=== PATIENT | male | born 1985 | race Caucasian/White ===

== ENCOUNTER 2016-08-05 15:40 | Emergency (ER) ==
[2016-08-05 16:57] LABS: URINE SOURCE VOIDED
[2016-08-05 17:00] LABS: BILIRUBIN URINE NEGATIVE (NEGATIVE); BLOOD URINE 2+ (NEGATIVE); CLARITY SL. CLOUDY (CLEAR); COLOR YELLOW; LEUKOCYTES URINE 2+ (NEGATIVE); NITRITE URINE NEGATIVE (NEGATIVE); PROTEIN URINE NEGATIVE (NEGATIVE); UROBILINOGEN URINE NORMAL
--- NOTE | 2016-08-05 17:15 | PROVIDER DOCUMENTATION ---
HPI-Male Problem - General Chief Complaint: UTI Symptoms Stated Complaint: UTI SX Time Seen by Provider: 08/05/16 16:57 Source: patient, family () Allergies/Adverse Reactions: Patient Allergies Allergy/AdvReac Type Severity Reaction Status Date / Time No Known Allergies Allergy Verified 08/05/16 16:40 Home Medications: Home Medication List Medication Instructions Recorded Confirmed Last Taken Type Metformin HCl [Fortamet] 1,000 mg PO BID 08/29/15 08/05/16 05/03/16 History Insulin Novolog 70/30 [Novolog Mix 24 unit SUBQ QAM 11/10/15 08/05/16 05/03/16 History 70/30] Glipizide 5 mg PO QAM 12/10/15 08/05/16 05/03/16 History Insulin Novolog 70/30 [Novolog Mix 12 unit SUBQ QPM 12/10/15 08/05/16 05/03/16 History 70/30] Clonidine [Catapres] 0.2 mg PO BID #10 tablet 04/24/16 08/05/16 05/03/16 Rx Doxycycline 100 mg PO BID #20 capsule 08/05/16 Unknown Rx - History of Present Illness-Male Nature of Presenting Problem: Pt is 31 y/o M presents to the ED with UTI like symptoms. Pt states burning with urination. Pt states he has not ever pulled back his foreskin and cleaned his penis under his foreskin. Pt denies F. Location of Complaint: reports: groin, urethral Radiation: reports: none Quality of Pain: reports: aching Severity in ED: reports: moderate Onset/Duration: reports: last night Timing: reports: still present, intermittent Context/Activities at Onset: reports: light activity Urinary Symptoms: reports: dysuria Sexual intercourse history: reports: Single Partner Contraception: reports: none Associated Symptoms: reports: unable to retract foreskin, penile discharge, penile pain/swelling Associated Symptoms: reports: denies symptoms Similar Symptoms Previously?: Yes Recently seen or treated by another doctor?: No Review of Systems - Adult - REVIEW OF SYSTEMS - ADULT Constitutional: denies: chills, fever Eyes: denies: blurred vision, double vision Ears, Nose, Mouth & Throat: denies: ear pain, nose pain, throat pain Cardiovascular: reports: irregular heart rate (tachy). denies: chest pain, heart murmur Respiratory: denies: cough, shortness of breath, wheezing Gastrointestinal: denies: abdominal pain, diarrhea, nausea, vomiting Genitourinary: reports: dysuria. denies: hematuria Musculoskeletal: denies: bone pain, joint pain, neck pain Integumentary: denies: hives, itching Neurological: denies: dizziness/vertigo, headache/migraines Psychiatric: reports: no symptoms reported Endocrine: reports: no symptoms reported Hematologic/Lymphatic: reports: no symptoms reported Allergic/Immunologic: reports: no symptoms reported All Other Systems: Reviewed and Negative Past History - Adult - PAST MEDICAL HISTORY-ADULT Review of Records: reports: Nursing Assessment Review, Medications Reviewed, Social history reviewed & non-contributory. Major Childhood Illnesses: reports: denies history Cardiovascular: reports: HTN Respiratory: reports: sleep apnea (including in the ER) Gastrointestinal: reports: GERD Obstetrical/Gynecological: reports: denies history Genitourinary: reports: denies history Musculoskeletal: reports: denies history Neurological: reports: denies history Psychiatric: reports: ptsd Endocrine/Immune: reports: Diabetes Other Conditions: reports: denies history - PRIOR SURGERIES/PROCEDURES Surgical/Procedure History: reports: none - IMMUNIZATION STATUS Childhood Immunizations: See Nurse Assessment Flu Vaccine: See Nurse Assessment - FAMILY HISTORY Family History: diabetes, CAD over 55 yo, HTN - SOCIAL HISTORY Smoking: cigarettes, less than 1 pack/day Provider spent 3-5 mins advising pt. on dangers of tobacco.: Discussed manners to quit use, and f/u contacts for add'l counseling. Substance Use: alcohol Alcohol Use Frequency: occasionally Number of drinks per typical drinking period:: 2 drinks Living Situation: family Physical Exam-General - PHYSICAL EXAM-ADULT Initial Vital Signs Reviewed: Yes - CONSTITUTIONAL General Appearance: appears well, alert, no apparent distress - EYES Eyes: PERRL/EOMI, pink conjunctivae, fundi clear, no AV nicking - HEAD, EARS, NOSE, MOUTH & THROAT HENMT: normocephalic/atraumatic, moist mucous membranes, normal ENT inspection, TMs normal, pharynx normal - NECK Neck: non-tender, full range of motion, supple, normal inspection - RESPIRATORY Respiratory: chest non-tender, lungs clear, normal breath sounds, no pleuratic chest pain, no respiratory distress, no accessory muscle use - CARDIOVASCULAR Cardiovascular: normal peripheral pulses, no edema, no gallop, no JVD, no murmur , tachycardia - GASTROINTESTINAL (ABDOMEN) Abdominal Exam: normal bowel sounds, non tender, soft, no organomegaly, no pulsatile mass - GENITOURINARY Male Genitalia: uncircumcised, other (foreskin swelling) Rectal Exam: deferred - LYMPHATIC Lymphatic: no adenopathy - MUSCULOSKELETAL Back Exam: normal inspection, no CVA tenderness, no vertebral tenderness Extremity: normal range of motion, non-tender, normal gait, normal inspection, no pedal edema, no calf tenderness, normal capillary refill, pelvis stable - SKIN Integumentary: normal color, normal turgor, warm/dry - NEUROLOGIC Neurologic: apparatus cleaner II-XII nml as tested, grossly normal, no motor/sensory deficits - PSYCHIATRIC Psych/Mental Status: normal mood/affect, normal thought content, normal thought process, oriented x 3 Progress - PLAN OF CARE/RESULTS Progress/Plan/Lab Results: Laboratory Tests 08/05/16 16:43 Urine Source VOIDED Urine Color YELLOW Urine Clarity SL. CLOUDY A Urine pH 5.0 Ur Specific [place] 1.010 Urine Protein NEGATIVE Urine Ketones NEGATIVE Urine Blood 2+ A Urine Nitrite NEGATIVE Urine Bilirubin NEGATIVE Urine Urobilinogen NORMAL Urine WBC 2+ A Urine Glucose 3+(500 mg/dL) A Orders Category Date Time Status UA [URINALYSIS PL W/POSS RFLX CULT] [URINALYSIS] Stat Lab 08/05/16 16:43 Results Vital Signs - 24 hr 08/05/16 08/05/16 16:39 16:41 Temperature 97.2 F L 97.2 F L Pulse Rate 110 H 110 H Respiratory 22 20 Rate Blood Pressure 157/103 O2 Sat by Pulse 96 97 Oximetry - CONSULTS/PCP/HOSPITALIST Notification #1 *Consult/PCP/Hospitalist*: Dr. Mcdermott Time Discussed: 17:46 (Dr. Mcdermott states have Pt call office to make appointment in the morning) Reason/Comments: Dr. Rodgers consults with Dr. Mcdermott about Pt. Consult Disposition: F/U in office - CHANGE OF SHIFT REPORT (ED Provider) Report Given and Care Transferred to:: Dr. Herrera Time of Transfer: 17:53 Items Pending: Other (Bladder scan) Departure - Departure Time of Disposition Order: 17:47 DIAGNOSIS: Urethritis, Balanitis Disposition: HOME 01 Certified Medical Emergency: Emergent Condition: Stable Additional Instructions: Follow up with Dr. Mcdermott ED Follow Up Instructions: You have been treated by a care provider in the Emergency Department. These instructions are being provided to you so you can have an understanding of how to care for yourself upon discharge. Upon discharge from the Emergency Department, you are responsible for making arrangements for follow-up care by a physician of your choice. Take all prescribed medications as directed. Return to the Emergency Department immediately for any new or worsening symptoms. You may call the Physician Referral phone number at [phone] to obtain a list of Physicians who are taking new patients. Prescriptions: Doxycycline 100 mg PO BID #20 capsule Referrals: Dmitriy Mcdermott DO [STAFF PHYSICIAN] - Call for Appoint. 1-2days Misha Queen MD [Primary Care Provider] - Call for Appoint. -1 week Attestation - Scribe Verification/Attestation Scribe:: Lori Dozier Acting as Scribe for:: Zander Rodgers Scribe documention review:: This chart was documented by a scribe and accurately reflects the service the provider performed and the decisions made by the provider. - Scribe Verification/Attestation #2 Shift Change Time: 17:53 Scribe Name: Brii Hutchison Acting as Scribe for:: Feng Herrera
[2016-08-05 17:17] LABS: URINE EPITHELIAL CELLS <10 /HPF (<10); URINE WBC 20-40 /HPF (<10)
[2016-08-05 17:18] LABS: URINE CAST NONE SEEN /LPF; URINE CRYSTAL NONE SEEN /HPF; URINE CULTURE PL NEEDED? YES
[2016-08-05] MEDS ORDERED: XYLOCAINE-MPF 1% INJ ONE (17:49)
[2016-08-05] MEDS ORDERED: ROCEPHIN IM ONE (17:49)
[2016-08-05 19:29] VITALS: BP 137/91
== END 2016-08-05 19:29 | disposition home or self-care (01) ==
LOC: P.ED 15:40
DX: N34.2 Other urethritis (principal); N48.1 Balanitis; R30.0 Dysuria; R36.9 Urethral discharge, unspecified; N48.89 Other specified disorders of penis; R00.0 Tachycardia, unspecified; I10 Essential (primary) hypertension; E11.9 Type 2 diabetes mellitus without complications; F17.210 Nicotine dependence, cigarettes, uncomplicated; Z79.4 Long term (current) use of insulin; Z79.899 Other long term (current) drug therapy; Z71.6 Tobacco abuse counseling; Z83.3 Family history of diabetes mellitus; Z82.49 Family history of ischemic heart disease and other diseases of the circulatory system
CPT/HCPCS: 51798; 81001; 87077; 87088; 96372; J0696

== ENCOUNTER 2016-08-06 19:57 | Emergency (ER) ==
[2016-08-06] MEDS ORDERED: NORCO-7.5 PO ONE (21:07)
[2016-08-06] MEDS ORDERED: PYRIDIUM PO ONE (21:07)
[2016-08-06] MEDS ORDERED: MOTRIN PO ONE (21:07)
--- NOTE | 2016-08-06 21:12 | PROVIDER DOCUMENTATION ---
HPI-Male Problem - General Source: patient - History of Present Illness-Male Severity in ED: reports: mild Onset/Duration: reports: 3 days ago Timing: reports: still present Context/Activities at Onset: reports: none Urinary Symptoms: reports: dysuria, retention Associated Symptoms: reports: denies symptoms Similar Symptoms Previously?: No Recently seen or treated by another doctor?: Yes <Haleigh Crocker - Last Filed: 08/06/16 21:08> <Colton Dickson - Last Filed: 08/06/16 21:35> - General Chief Complaint: Male Stated Complaint: URINARY RENTION Time Seen by Provider: 08/06/16 20:59 Allergies/Adverse Reactions: Patient Allergies Allergy/AdvReac Type Severity Reaction Status Date / Time No Known Allergies Allergy Verified 08/05/16 16:40 Home Medications: Home Medication List Medication Instructions Recorded Confirmed Last Taken Type Metformin HCl [Fortamet] 1,000 mg PO BID 08/29/15 08/05/16 05/03/16 History Insulin Novolog 70/30 [Novolog Mix 24 unit SUBQ QAM 11/10/15 08/05/16 05/03/16 History 70/30] Glipizide 5 mg PO QAM 12/10/15 08/05/16 05/03/16 History Insulin Novolog 70/30 [Novolog Mix 12 unit SUBQ QPM 12/10/15 08/05/16 05/03/16 History 70/30] Clonidine [Catapres] 0.2 mg PO BID #10 tablet 04/24/16 08/05/16 05/03/16 Rx Doxycycline 100 mg PO BID #20 capsule 08/05/16 Unknown Rx Hydrocodone/Acetaminophen [[place] 1 each PO Q4-6H PRN PRN #20 tablet 08/06/16 Unknown Rx 7.5-325 Tablet] Ibuprofen [Motrin] 800 mg PO Q8H PRN PRN #30 tablet 08/06/16 Unknown Rx Phenazopyridine HCl [Pyridium] 200 mg PO TID #30 tablet 08/06/16 Unknown Rx - History of Present Illness-Male Nature of Presenting Problem: 31 year old M presents to the ED with a cc of urinary retention. Pt states that he was seen yesterday and diagnosed with balinitis. Pt states that he has been taking his medications and has called for a follow up appointment with the urologist. PT states that he has had trouble urinating today. Pt states that he is able to pass his urine but it [place]. (Haleigh Crocker) Review of Systems - Adult - REVIEW OF SYSTEMS - ADULT Constitutional: denies: chills, fever Eyes: reports: no symptoms reported Ears, Nose, Mouth & Throat: reports: no symptoms reported Cardiovascular: denies: chest pain, palpitations Respiratory: denies: cough, shortness of breath Gastrointestinal: denies: diarrhea, nausea, vomiting Genitourinary: reports: dysuria, urinary retention Musculoskeletal: reports: no symptoms reported Integumentary: reports: no symptoms reported Neurological: reports: no symptoms reported Psychiatric: reports: no symptoms reported Endocrine: reports: no symptoms reported Hematologic/Lymphatic: reports: no symptoms reported Allergic/Immunologic: reports: no symptoms reported All Other Systems: Reviewed and Negative <Haleigh Crocker - Last Filed: 08/06/16 21:08> Past History - Adult - PAST MEDICAL HISTORY-ADULT Review of Records: reports: Nursing Assessment Review, Medications Reviewed Major Childhood Illnesses: reports: denies history Cardiovascular: reports: HTN Respiratory: reports: sleep apnea (including in the ER) Gastrointestinal: reports: GERD Obstetrical/Gynecological: reports: denies history Genitourinary: reports: denies history Musculoskeletal: reports: denies history Neurological: reports: denies history Psychiatric: reports: ptsd Endocrine/Immune: reports: Diabetes Diabetes controlled by:: Insulin Dependent Other Conditions: reports: denies history - PRIOR SURGERIES/PROCEDURES Surgical/Procedure History: reports: none - IMMUNIZATION STATUS Childhood Immunizations: See Nurse Assessment Flu Vaccine: See Nurse Assessment - FAMILY HISTORY Family History: diabetes, CAD over 55 yo, HTN - SOCIAL HISTORY Smoking: cigarettes, less than 1 pack/day Provider spent 3-5 mins advising pt. on dangers of tobacco.: Discussed manners to quit use, and f/u contacts for add'l counseling. Substance Use: none/never Alcohol Use Frequency: never <Haleigh Crocker - Last Filed: 08/06/16 21:08> Physical Exam-General - PHYSICAL EXAM-ADULT Initial Vital Signs Reviewed: Yes - CONSTITUTIONAL General Appearance: appears well, alert, no apparent distress - RESPIRATORY Respiratory: chest non-tender, lungs clear, normal breath sounds - CARDIOVASCULAR Cardiovascular: normal peripheral pulses, regular rate, rhythm, no edema - GASTROINTESTINAL (ABDOMEN) Abdominal Exam: non tender, soft - GENITOURINARY Male Genitalia: other (swelling to foreskin) - SKIN Integumentary: normal color, normal turgor, warm/dry - PSYCHIATRIC Psych/Mental Status: normal mood/affect, normal thought content, normal thought process, oriented x 3 <Haleigh Crocker - Last Filed: 08/06/16 21:08> Departure <Haleigh Crocker - Last Filed: 08/06/16 21:08> - Departure Time of Disposition Order: 21:34 Certified Medical Emergency: Emergent <Colton Dickson - Last Filed: 08/06/16 21:35> - Departure DIAGNOSIS: Balanitis Disposition: HOME 01 Condition: Good Additional Instructions: ED Follow Up Instructions: You have been treated by a care provider in the Emergency Department. These instructions are being provided to you so you can have an understanding of how to care for yourself upon discharge. Upon discharge from the Emergency Department, you are responsible for making arrangements for follow-up care by a physician of your choice. Take all prescribed medications as directed. Return to the Emergency Department immediately for any new or worsening symptoms. You may call the Physician Referral phone number at [phone] to obtain a list of Physicians who are taking new patients. Prescriptions: Ibuprofen [Motrin] 800 mg PO Q8H PRN PRN #30 tablet PRN Reason: Pain Hydrocodone/Acetaminophen [[place] 7.5-325 Tablet] 1 each PO Q4-6H PRN PRN #20 tablet PRN Reason: Pain Phenazopyridine HCl [Pyridium] 200 mg PO TID #30 tablet Referrals: Misha Queen MD [Primary Care Provider] - Forms: Return to School/Parent Work Instructions: Ibuprofen tablets and capsules, Phenazopyridine tablets, Hydrocodone extended-release capsules or tablets Attestation - Scribe Verification/Attestation Scribe:: Haleigh Crocker Acting as Scribe for:: Colton Dickson Scribe documention review:: This chart was documented by a scribe and accurately reflects the service the provider performed and the decisions made by the provider. <Haleigh Crocker - Last Filed: 08/06/16 21:08> Physician Attestation - Physician Attestation I, the provider, attest to the following statement:: Colton Dickson Physician documentation Attestation:: This documentation recorded by the scribe accurately reflects the service I personally performed and the decisions made by me. <Haleigh Crocker - Last Filed: 08/06/16 21:08>
[2016-08-06 21:38] VITALS: BP 153/83
== END 2016-08-06 21:33 | disposition home or self-care (01) ==
LOC: P.ED 19:57
DX: N48.1 Balanitis (principal); R33.9 Retention of urine, unspecified; R30.0 Dysuria; I10 Essential (primary) hypertension; E11.9 Type 2 diabetes mellitus without complications; F17.210 Nicotine dependence, cigarettes, uncomplicated; Z79.4 Long term (current) use of insulin; Z79.899 Other long term (current) drug therapy; Z71.6 Tobacco abuse counseling; Z83.3 Family history of diabetes mellitus; Z82.49 Family history of ischemic heart disease and other diseases of the circulatory system
CPT/HCPCS: 99282